=== PATIENT | female | born 1965 | race Hispanic/Latino ===

== ENCOUNTER 2017-08-24 09:00 | Outpatient (CLI) | payer OTHER ==
--- NOTE | 2017-08-24 12:04 | MMO ---
BILATERAL SCREENING MAMMOGRAMS: Date: 08/24/17 This is a baseline exam. This patient's mammogram was interpreted with the assistance of computer-aided detection. FINDINGS: Heterogeneously dense glandular pattern. There is question of a focal area of distortion in the lower right breast seen on MLO view only. Recommend this be further evaluated with diagnostic right breast exam. IMPRESSION: BIRADS 0: Incomplete: Need Additional Imaging Evaluation and/or Prior Mammograms for Comparison Further imaging right breast required. The facility will notify the patient of the need for additional imaging services. POS: [facility]
== END 2017-08-24 09:01 | disposition home or self-care (01) ==
LOC: SCSMAMMO 09:00
PROVIDERS: ATTEND Family Medicine
DX: Z12.31 Encounter for screening mammogram for malignant neoplasm of breast (principal)
CPT/HCPCS: 77067

== ENCOUNTER 2017-09-25 08:15 | Outpatient (CLI) | payer OTHER | END 2017-09-25 08:16 | disposition home or self-care (01) | LOC: BICMAMMO 08:15 | PROVIDERS: ATTEND Family Medicine | DX: N63.10 Unspecified lump in the right breast, unspecified quadrant (principal) | CPT/HCPCS: G0279 ==